=== PATIENT | female | born 2000 | race Caucasian/White ===

== ENCOUNTER 2021-05-21 23:22 | Outpatient (CLI) | payer OTHER ==
[2021-05-22 00:36] VITALS: BP 125/88; PULSE 94; RESP 16; TEMP 97.7
--- NOTE | 2021-07-18 16:16 | P.MSEPDOC ---
Presenting Problems - Arrival Data Date of Arrival on Unit: 05/21/21 Time of Arrival on Unit: 23:22 Mode of Transport: Ambulatory - Complaint OB-Reason for Admission/Chief Complaint: Rule Out SROM Comment: Patient presents to triage with c/o SROM at 2100. Medical History - Information : 1 Para: 0 Term: 0 : 0 Abortions: Spontaneous or Elective: 0 Number of Living Children: 0 - Gestational Age Gestational Age by DAVID (wks/days): 38 Weeks and 6 Days Review of Systems - Review of Systems Constitutional: No problems Breast: No problems ENT: No problems Cardiovascular: No problems Respiratory: No problems Gastrointestinal: No problems Genitourinary: No problems Musculoskeletal: No problems Neurological: No problems Skin: No problems Vital Signs - Temperature Temperature: 97.7 F Temperature Source: Temporal Artery Scan - Pulse Right Brachial Pulse Rate: 94 Pulse Assessment Method: Automatic Cuff - Respirations Respiratory Rate: 16 Oxygen Delivery Method: Room Air O2 Sat by Pulse Oximetry: 100 - Blood Pressure Right Arm Blood Pressure: 125/88 Blood Pressure Mean: 100 Blood Pressure Source: Automatic Cuff Medical Screen Scoring - Assessment - Baby A Baseline FHR: 125 Heart Rate - NICHD Category: Category I (Normal) NST: Reactive Physician Notification - Physician Notified Physician Notified Date: 05/22/21 Physician Notified Time: 00:02 Physician: Daysi Sinha New Order Received: Yes (discharge) - Notification Comment Comment: report given to Dr. Sinha on reactive nst, cervical exam, and negative. amnisure. Patient approved for discharge and review labor procautions. Maternal Triage Index - Stat/Priority 1 Stat Priority 1: No - Urgent/Priority 2 Urgent Priority 2: No - Prompt/Priority 3 Prompt Priority 3: No - Non-Urgent/Priority 4 Non-Urgent Priority 4: Yes Criteria Met for Priority 4: Patient presents for c/o SROM at 38 5/7 weeks. Disposition - Disposition OB Disposition: Discharge to home Discharge Date: 05/22/21 Discharge Time: 00:12 I agree with the RN Medical Screening Exam: Yes Case reviewed; plan agreed upon as documented in EMR&OBIX.: Yes Comments: Patient was not seen or examined by myself Diagnosis: FALSE LABOR AT OR AFTER 37 COMPLETED WEEKS OF GESTATION
== END 2021-05-22 00:12 | disposition home or self-care (01) ==
LOC: FBPOP 23:22
PROVIDERS: ATTEND Obstetrics & Gynecology Obstetrics
DX: O47.1 False labor at or after 37 completed weeks of gestation (principal); Z3A.38 38 weeks gestation of pregnancy
CPT/HCPCS: 59025; G0463; 99213

== ENCOUNTER 2021-05-28 05:05 | Outpatient (CLI) | payer OTHER ==
[2021-05-28 07:34] VITALS: BP 129/76; PULSE 87; RESP 16; TEMP 97
--- NOTE | 2021-07-18 16:19 | P.MSEPDOC ---
Presenting Problems - Arrival Data Date of Arrival on Unit: 05/28/21 Time of Arrival on Unit: 05:05 Mode of Transport: Ambulatory - Complaint OB-Reason for Admission/Chief Complaint: Possible Onset of Labor Comment: Patient presents to triage with contractions that started around 0300 this am, states they are approximately 8-10 minutes apart. Denies vaginal bleeding or leaking of fluids. Medical History - Information : 1 Para: 0 Term: 0 : 0 Abortions: Spontaneous or Elective: 0 Number of Living Children: 0 - Gestational Age Gestational Age by DAVID (wks/days): 39 Weeks and 3 Days - History Complications: Hx. Substance Abuse Comment: Positive for THC use in the Review of Systems - Review of Systems Constitutional: No problems Breast: No problems ENT: No problems Cardiovascular: No problems Respiratory: No problems Gastrointestinal: No problems Genitourinary: No problems Musculoskeletal: No problems Neurological: No problems Skin: No problems Vital Signs - Temperature Temperature: 97.0 F Temperature Source: Temporal Artery Scan - Pulse Pulse Oximetery Pulse Rate: 87 Pulse Assessment Method: Pulse Oximetry - Respirations Respiratory Rate: 16 Oxygen Delivery Method: Room Air - Blood Pressure Sitting Blood Pressure: 129/76 Blood Pressure Mean: 93 Blood Pressure Source: Automatic Cuff Medical Screen Scoring - Cervical Exam Dilation (cm): 1 Station: -2 Membranes: Intact - Uterine Contractions Intensity: Mild Resting: Soft to palpation - Assessment - Baby A Baseline FHR: 125 Heart Rate - NICHD Category: Category I (Normal) Physician Notification - Physician Notified Physician Notified Date: 05/28/21 Physician Notified Time: 06:20 Physician: Daysi Sinha New Order Received: Yes - Notification Comment Comment: Discharge patient home with instructions. Maternal Triage Index - Prompt/Priority 3 Prompt Priority 3: Yes Criteria Met for Priority 3: 39 5/7 Patient having irregular contractions 1 cm/thick/-2, Patient was closed last week in the office. Disposition - Disposition OB Disposition: Discharge to home, Written follow up instructions reviewed Discharge Date: 05/28/21 Discharge Time: 06:25 I agree with the RN Medical Screening Exam: Yes Physician's MSE Comment: Patient was seen or examined by myself Case reviewed; plan agreed upon as documented in EMR&OBIX.: Yes Diagnosis: FALSE LABOR AT OR AFTER 37 COMPLETED WEEKS OF GESTATION
== END 2021-05-28 06:25 | disposition home or self-care (01) ==
LOC: FBPOP 05:05
PROVIDERS: ATTEND Obstetrics & Gynecology Obstetrics
DX: O47.1 False labor at or after 37 completed weeks of gestation (principal); O99.323 Drug use complicating pregnancy, third trimester; F12.90 Cannabis use, unspecified, uncomplicated; Z3A.39 39 weeks gestation of pregnancy
CPT/HCPCS: 59025; G0463; 99213

== ENCOUNTER 2021-05-30 12:32 | Inpatient (IN) | payer OTHER ==
[2021-06-06] MEDS ORDERED: CARBOPROST TROMETHAMINE 250 MCG/ML 1 ML AMP IM PRN (06:12)
[2021-06-06] MEDS ORDERED: OXYTOCIN 10 UNIT/ML 1 ML VIAL IM PRN (06:12)
[2021-06-06] MEDS ORDERED: TERBUTALINE 1 MG/ML VIAL SQ PRN (06:12)
[2021-06-06] MEDS ORDERED: LIDOCAINE 0.5% (PF) 5 MG/ML (50 ML SDV) SQ PRN (06:12)
[2021-06-06] MEDS ORDERED: METHYLERGONOVINE 0.2 MG/ML 1 ML AMP IM PRN (06:12)
[2021-06-06] MEDS ORDERED: OXYTOCIN 30 UNITS/500 ML NS 30 UNIT in SALINE 1 500ML.BAG IV SCH (06:15)
[2021-06-06] MEDS: LACTATED RINGERS 1,000 ML IV SCH ×3 (06:28→14:07)
[2021-06-06 06:55] LABS: Basophils % (A) 0 %; Eosinophils # (A) 0.1 k/uL (0-0.7); Eosinophils % (A) 1 %; HCT 34.3 % (34.0-46.0); HGB 11.5 gm/dL (11.4-16.0); Lymphocytes # (A) 2.6 k/uL (1.0-4.8); Lymphocytes % (A) 22 %; MCH 28.2 pg (25.0-35.0); MCHC 33.6 g/dL (31.0-37.0); MCV 83.8 fL (80.0-100.0); Mean Platelet Volume 10.3; Monocytes # (A) 0.6 k/uL (0-1.0); Monocytes % (A) 5 %; Neutrophils # (A) 8.5 k/uL (1.3-7.7); Neutrophils % (A) 71 %; Platelet Count 297 k/uL (150-450); RDW 15.1 % (11.5-15.5)
--- NOTE | 2021-06-06 07:45 | P.HPOB ---
History of Present Illness H&P Date: 06/06/21 Chief Complaint: Here for induction of labor with postdates This is a 20-year-old white female 1 para 0 EDC 05/30/2021 at 41 weeks gestation. Patient presents today for induction. She denies vaginal bleeding or fluid leakage. Fetus is been active throughout the . Past medical history is significant for anxiety and depression. Past surgical history tonsillectomy and adenoidectomy current medications vitamins, baby aspirin daily. ALLERGIES none known. Family history significant for diabetes and hypertension. Social history patient is single, father of the baby Helder is present and involved. She is a former tobacco smoker, but denies recent tobacco alcohol or drug use. history blood type is A+, rubella status immune. VDRL testing, urine culture, hepatitis B surface antigen, HIV testing, gonorrhea and chlamydia cultures, group B strep cultures all negative. One-hour Glucola 98. Urine drug screen positive for cannabinoids. On exam patient is 5 foot 4 inches, 168 pounds, blood pressure on admission 139/84. General physical exam is within normal limits. Cervix is 2 cm dilated, 70% effaced, -2 station, vertex presentation, anterior and soft. Artificial amniorrhexis reveals light meconium-stained fluid. heart rate is in the 140s with good overall variability and frequent accelerations. Uterine contractions are occurring every 4-3 minutes apart, very mild intensity at this time. Impression: 41 week intrauterine , here for induction of labor, meconium-stained fluid, otherwise all signs reassuring. Plan: Oxytocin per hospital protocol. Close maternal and surveillance. Anticipating normal spontaneous vaginal delivery. Review of Systems Constitutional: Reports as per HPI Past Medical History History of Any Multi-Drug Resistant Organisms: None Reported Smoking Status: Never smoker Past Drug Use History: None Reported Medications and Allergies Home Medications Medication Instructions Recorded Confirmed Type Aspirin 81 mg PO DAILY 05/21/21 06/06/21 History Pnv No.95/Ferrous Fum/Folic AC 1 tab PO DAILY 05/21/21 06/06/21 History [ Multivitamin Tablet] Allergies Allergy/AdvReac Type Severity Reaction Status Date / Time No Known Allergies Allergy Verified 06/06/21 06:11 Exam Vital Signs Temp Pulse Resp BP 06/06/21 06:10 97.7 F 88 16 139/84 Intake and Output 06/05/21 06/06/21 06/06/21 22:59 06:59 14:59 Other: Weight 76.204 kg See dictation under HPI please Results Result Diagrams: 06/06/21 06:20 Abnormal Lab Results - Last 24 Hours (Table) 06/06/21 Range/Units 06:20 WBC 12.0 H (3.8-10.6) k/uL Neutrophils # 8.5 H (1.3-7.7) k/uL Assessment and Plan Assessment: 41 week intrauterine , here for induction of labor, meconium-stained fluid. Negative group strep cultures. Plan: Oxytocin per hospital protocol. Continue close maternal and surveillance. Anticipate normal spontaneous vaginal delivery. Time with Patient: Less than 30
[2021-06-06] MEDS ORDERED: BUTORPHANOL 1 MG/ML 1 ML VIAL IV PRN (09:56)
[2021-06-06] MEDS ORDERED: ROPIVACAINE 5MG/ML 20ML VIAL ONE (11:39)
[2021-06-06] MEDS ORDERED: SODIUM CHLORIDE 0.9% 100 ML BAG ONE (11:39)
[2021-06-06] MEDS ORDERED: fentaNYL (PF) 50 MCG/ML 5 ML AMP ONE (11:39)
[2021-06-06] MEDS ORDERED: CITRIC ACID-SODIUM CITRATE 15 ML CUP PO ONE (18:03)
[2021-06-06] MEDS ORDERED: LACTATED RINGERS 1,000 ML IV ONE (18:03)
[2021-06-06] MEDS ORDERED: MORPHINE SULFATE (PF) 0.3 MG/0.3 ML SYR ONE (18:17)
[2021-06-06] MEDS ORDERED: ONDANSETRON 4 MG/2 ML VIAL ONE (18:17)
[2021-06-06] MEDS ORDERED: diphenhydrAMINE 50 MG/ML 1 ML VIAL IVP PRN ×3 (18:39→19:05)
[2021-06-06] MEDS ORDERED: NALOXONE 0.4 MG/ML 1 ML VIAL IV PRN (18:39)
[2021-06-06] MEDS ORDERED: ONDANSETRON 4 MG/2 ML VIAL IVP PRN ×2 (18:39→19:05)
[2021-06-06] MEDS ORDERED: MORPHINE SULFATE 2 MG/ML SYRINGE IVP PRN (18:39)
[2021-06-06] MEDS ORDERED: HYDROmorphone 1 MG/ML 1 ML SYRINGE IVP PRN (19:05)
[2021-06-06] MEDS ORDERED: SIMETHICONE 80 MG CHEWABLE PO PRN (19:05)
[2021-06-06] MEDS ORDERED: diphenhydrAMINE 50 MG CAP PO PRN (19:05)
[2021-06-06] MEDS ORDERED: diphenhydrAMINE 25 MG CAP PO PRN (19:05)
[2021-06-06] MEDS ORDERED: METOCLOPRAMIDE 5 MG/ML 2 ML VIAL IVP PRN (19:05)
[2021-06-06] MEDS ORDERED: ZOLPIDEM 5 MG TAB PO PRN (19:05)
--- NOTE | 2021-06-06 19:05 | P.OP ---
Date of Procedure: 06/06/21 Preoperative Diagnosis: 41 week intrauterine , meconium-stained fluid, arrest of dilation at 8- 9 cm, nonreassuring heart tones. Postoperative Diagnosis: Same, occiput posterior liveborn male , scores 9 and 9. 7 lbs. 4 oz. 3280 g. Normal-appearing uterus and bilateral tubes and ovaries Procedure(s) Performed: Primary low transverse section Anesthesia: epidural Surgeon: Mechelle Shea Supervisor Stage Carpentry #1: Zora Blair Estimated Blood Loss (ml): 250 IV fluids (ml): 800 Urine output (ml): 400 Pathology: other (placenta) Condition: stable Disposition: PACU Indications for Procedure: Several episodes of deep, prolonged late decelerations. Arrest of dilation at 8-9 cm. Postdates , meconium-stained fluid. Operative Findings: Liveborn male , occiput posterior, 7 lbs. 4 oz., 3280 g. Description of Procedure: Patient is brought to the operating suite where the previously placed epidural catheter is topped off. She's placed in the dorsal supine position with left lateral uterine displacement. Abdomen is prepped and draped in usual sterile fashion. Moser catheter placed to direct drainage. 2 g of Ancef given. Bicitra given. Abdominal and vaginal prep performed. It is checked and noted to be adequate. The appropriate timeout is performed to assure proper patient and procedural identification. A low transverse skin incision is made in this is carried down through the subcutaneous tissue which is approximately 2 cm deep. Fascia is isolated, scored, extended bilaterally with curved Suggs scissors. Peritoneum is next identified and incised. There is no bowel or bladder involvement. The bladder blade is placed over the dome of the bladder and at all times the bladder is Well from the operative field to avoid bladder and/or ureteral injury. A low transverse uterine incision is made, extended bilaterally with blunt dissection. Infant's head is delivered in the occiput posterior position, there is no nuchal cord. The oropharynx, nasopharynx, and external nares are all thoroughly bulb suctioned. Patient is officially delivered of a liveborn male at 1829 hours. Umbilical cord is doubly clamped and ligated, he is handed to waiting nurses for evaluation where scores of 9 and 9 at one and 5 minutes respectively are given. The placenta is delivered manually, it is inspected and noted to be deeply meconium-stained, trivascular cord, fully intact. It is sent to pathology for evaluation. The uterus is then externalized and massaged. It is swept clean with a sterile sponge to avoid any retained products of conception. Oxytocin is given. The uterus is closed in a two-step fashion, first layer running locking, second layer imbricated, both with 0 Vicryl suture. Excellent reapproximation is noted. The abdomen is suctioned with suction on guard posterior to the uterus. Uterus is placed back into the abdominal cavity. Bilateral gutters are inspected and cleaned. The peritoneum is allowed to close by secondary intention. Fascia is closed in a running stitch of 0 Vicryl with over ligation in the midline. Subcutaneous tissue is irrigated, clean and dry. It is reapproximated with 3-0 Vicryl in a running fashion. 4-0 undyed Monocryl is used for final skin closure. Steri-Strips and Mastisol are applied to the wound. Uterus is massaged. Moser is noted to be draining clear urine. All sponge needle and enhancement counts are correct. Total estimated blood loss 250 mL, urine 400 mL, fluids 800 mL's. Patient is brought back to the recovery room in very good condition with stable vital signs including blood pressure 120/80, pulse 70. Patient is requesting circumcision for her son.
[2021-06-06] MEDS ORDERED: LACTATED RINGERS 1,000 ML IV SCH (19:15)
[2021-06-06] MEDS ORDERED: ACETAMINOPHEN IV (For NPO) 1,000 MG in EMPTY BAG 1 BAG IVPB PRN (20:17)
[2021-06-06] MEDS ORDERED: KETOROLAC 15 MG/ML 1 ML VIAL IM PRN (20:17)
[2021-06-06] MEDS: KETOROLAC 15 MG/ML 1 ML VIAL IVP PRN (20:37)
[2021-06-06] MEDS: SENNOSIDES-DOCUSATE SODIUM 1 EACH TAB PO SCH (20:48)
[2021-06-07] MEDS: LACTATED RINGERS 1,000 ML IV SCH ×2 (00:01→22:00)
[2021-06-07] MEDS: KETOROLAC 15 MG/ML 1 ML VIAL IVP PRN (04:19)
[2021-06-07 07:13] LABS: Basophils % (A) 0 %; Eosinophils % (A) 0 %; HCT 34.4 % (34.0-46.0); HGB 11.2 gm/dL (11.4-16.0); Lymphocytes % (A) 13 %; MCHC 32.6 g/dL (31.0-37.0); Mean Platelet Volume 9.9; Monocytes % (A) 4 %; Neutrophils % (A) 82 %; Platelet Count 285 k/uL (150-450); RBC 3.99 m/uL (3.80-5.40); RDW 15.2 % (11.5-15.5); WBC 15.2 k/uL (3.8-10.6)
[2021-06-07 07:14] LABS: Eosinophils # (A) 0.1 k/uL (0-0.7); Monocytes # (A) 0.5 k/uL (0-1.0); Neutrophils # (A) 12.5 k/uL (1.3-7.7)
--- NOTE | 2021-06-07 08:07 | P.PN ---
Subjective Progress Note Date: 06/07/21 Principal diagnosis: Well postoperative day #1 Slept well. Minimal pain. No complaints. Objective - Vital Signs Vital signs: Vital Signs Temp 98 F 06/07/21 04:00 Pulse 85 06/07/21 04:00 Resp 16 06/07/21 06:00 BP 127/81 06/07/21 04:00 Pulse Ox 98 06/07/21 04:00 Intake & Output 06/06/21 06/07/21 06/07/21 18:59 06:59 18:59 Intake Total 2000 400 Output Total 4600 Balance 2000 -4200 Intake: IV 2000 200 Invasive Line 1 200 Oral 200 Output: Urine 4600 Uretheral (Moser) 1100 Other: Voiding Method Indwelling Catheter # Voids 2 0 - Constitutional General appearance: Present: average body habitus, cooperative - EENT Eyes: Present: PERRLA ENT: Present: hearing grossly normal - Neck Neck: Present: normal ROM - Respiratory Respiratory: bilateral: CTA - Cardiovascular Rhythm: regular - Gastrointestinal Gastrointestinal Comment(s): Positive tympany. Abdomen soft, nontender, fundus firm, midline, symmetric, 18 week size. General gastrointestinal: Present: normal bowel sounds - Integumentary Integumentary: Present: normal - Neurologic Neurologic: Present: CNII-XII intact - Musculoskeletal Musculoskeletal: Present: strength equal bilaterally - Psychiatric Psychiatric: Present: A&O x's 3, appropriate affect, intact judgment & insight - Labs CBC & Chem 7: 06/07/21 06:40 Labs: Abnormal Lab Results - Last 24 Hours (Table) 06/07/21 Range/Units 06:40 WBC 15.2 H (3.8-10.6) k/uL Hgb 11.2 L (11.4-16.0) gm/dL Neutrophils # 12.5 H (1.3-7.7) k/uL Assessment and Plan Assessment: Doing well postoperative day #1 Plan: Advance diet and activity. Anticipate discharge home tomorrow. Continue postoperative care. Time with Patient: Less than 30 (Doing well day #1)
[2021-06-07] MEDS: ACETAMINOPHEN TAB 325 MG TAB PO PRN ×3 (08:17→21:15)
[2021-06-07] MEDS: IBUPROFEN 600 MG TAB PO SCH ×4 (09:02→23:21)
[2021-06-07] MEDS: SENNOSIDES-DOCUSATE SODIUM 1 EACH TAB PO SCH ×2 (09:02→21:15)
--- NOTE | 2021-06-07 09:52 | P.PN ---
Progress Note - Text Progress Note Date: 06/07/21 (029) Anesthesia Postop day 1 Subjective: Status Post section with Duramorph. Patient seen and examined. Doing well without complaint. VAS 4 out of 10. No nausea or vomiting. Mild pruritus tolerable.. It'll signs stable. Gross lower extremity strength intact. . Without apparent anesthetic complications. Objective: Vital signs reviewed Heart: Regular Rate Lungs: Good chest excursion Abdomen: Appears nondistended Assessment: Status post with Duramorph postop day 1 Plan: Continue current care with your medical management.
[2021-06-08] MEDS ORDERED: HYDROcodone/APAP 5-325MG 1 EACH TAB PO PRN (02:38)
[2021-06-08] MEDS: IBUPROFEN 600 MG TAB PO SCH ×2 (04:30→10:53)
--- NOTE | 2021-06-08 07:57 | P.DS ---
Providers Date of admission: 06/06/21 06:00 Expected date of discharge: 06/08/21 Attending physician: Mechelle Shea Primary care physician: Stated None Hospital Course: This is a 20-year-old white female 1 para 0 EDC 05/30/2021 at 41 weeks gestation who presented for induction for postdates with reasonably favorable cervix. She progressed through labor, had arrest of dilatation and descent along with nonreassuring heart tones. Meconium-stained fluid was noted. She went on to deliver via low transverse section, a liveborn male with scores of 9 and 9 at one and 5 minutes respectively. He weighed 7 lbs. 4 oz. or 3280 g. He was in the occiput posterior position. Estimated blood loss 250 mL's. Please see dictated operative note for details. This morning the patient is doing well. Incision is clean and dry, intact, Steri-Strips applied. Fundus is firm, midline, symmetric, 18 week size. Breasts are not engorged. Extremities are negative. She is voiding, ambulating, passing flatus without difficulty. Vital signs are stable and she is afebrile. [place] is doing well, circumcision has been performed. Patient is judged to be in very good condition for discharge home. She will follow-up with me in the office in 2 weeks for incision check. She will call with any fevers shakes or chills, foul smelling or copious lochia, with the passage of large blood clots, with any pain not alleviated by ibuprofen products, or indeed concerns. will follow-up with data entry specialist as per recommendations. Assessment: doing well post operative day #2 Patient Condition at Discharge: Good Plan - Discharge Summary Discharge Rx Participant: No New Discharge Prescriptions: No Action Aspirin 81 mg PO DAILY Pnv No.95/Ferrous Fum/Folic AC [ Multivitamin Tablet] 1 tab PO DAILY Discharge Medication List Aspirin 81 mg PO DAILY 05/21/21 [History] Pnv No.95/Ferrous Fum/Folic AC [ Multivitamin Tablet] 1 tab PO DAILY 05/21/21 [History] Follow up Appointment(s)/Referral(s): Mechelle Shea MD [STAFF PHYSICIAN] - 2 Weeks Discharge Disposition: HOME SELF-CARE
[2021-06-08] MEDS: SENNOSIDES-DOCUSATE SODIUM 1 EACH TAB PO SCH (09:36)
[2021-06-08] MEDS: ACETAMINOPHEN TAB 325 MG TAB PO PRN (09:36)
[2021-06-08 10:31] VITALS: BP 131/78; PULSE 84; RESP 16; TEMP 98.1
== END 2021-06-08 11:00 | disposition home or self-care (01) | DRG 788 ==
LOC: 4FBP 06-06 06:00
PROVIDERS: ADMIT Obstetrics & Gynecology; ATTEND Obstetrics & Gynecology
PROC: 10D00Z1 Extraction of Products of Conception, Low, Open Approach (ICD-10-PCS; principal; 2021-06-06 06:00)
DX: O48.0 Post-term pregnancy (principal); Z37.0 Single live birth; O77.0 Labor and delivery complicated by meconium in amniotic fluid; Z3A.41 41 weeks gestation of pregnancy; O76 Abnormality in fetal heart rate and rhythm complicating labor and delivery; O62.0 Primary inadequate contractions; L29.9 Pruritus, unspecified; Z87.891 Personal history of nicotine dependence; Z83.3 Family history of diabetes mellitus; Z82.49 Family history of ischemic heart disease and other diseases of the circulatory system; Z79.82 Long term (current) use of aspirin; O99.72 Diseases of the skin and subcutaneous tissue complicating childbirth
CPT/HCPCS: 85025; 86850; 86900; 86901